=== PATIENT | male | born 1980 | race Hispanic/Latino ===

== ENCOUNTER 2018-11-10 19:21 | Emergency (ER) | payer OTHER ==
[2018-11-10 19:31] VITALS: BP 122/75
--- NOTE | 2018-11-10 19:36 | Emergency Department Report ---
Blank Doc - Documentation Documentation: 37 y o male presents to Ed cc of left sided chestpain with left arm pain and nu mbness to his arm. He described pain as sharp and intermittent thats worsens with movment He denies trauma, fall or injury
[2018-11-10 19:56] LABS: Basophils % (Auto) 0.5 % (0.0-1.8); Eosinophils # (Auto) 0.2 K/mm3 (0.0-0.4); Eosinophils % (Auto) 3.1 % (0.0-4.3); Lymphocytes # (Auto) 2.1 K/mm3 (1.2-5.4); Lymphocytes % (Auto) 30.4 % (13.4-35.0); Mean Corpuscular HGB Conc 36 % (32-34); Mean Corpuscular Volume 92 fl (84-94); Monocytes # (Auto) 0.3 K/mm3 (0.0-0.8); Monocytes % (Auto) 4.7 % (0.0-7.3); Platelet Count 202 K/mm3 (140-440); Red Blood Count 5.04 M/mm3 (3.65-5.03); Red Cell Distribution Width 12.8 % (13.2-15.2)
[2018-11-10 20:11] LABS: BUN/Creatinine Ratio 12; Blood Urea Nitrogen 13 mg/dL (9-20); Calcium 8.9 mg/dL (8.4-10.2); Hemolysis Index 14
[2018-11-10 20:12] LABS: Hematocrit 46.4 % (35.5-45.6); Hemoglobin 16.7 gm/dl (11.8-15.2)
--- NOTE | 2018-11-10 20:47 | XRay Report ---
PROCEDURE: XR CHEST ROUTINE 2V TECHNIQUE: PA and lateral chest radiographs were obtained. HISTORY: Chest Pain COMPARISONS: None. FINDINGS: Heart: Normal. Mediastinum/Vessels: Normal. Lungs/Pleural space: Normal. Bony thorax: No acute osseous abnormality. IMPRESSION: No acute cardiopulmonary process seen.. This document is electronically signed by Heide Johnson MD., November 10 2018 08:45:58 PM ET
[2018-11-10] MEDS ORDERED: ASPIRIN PO ONE (22:55)
--- NOTE | 2018-11-10 22:59 | Emergency Department Report ---
HPI - General Chief Complaint: Chest Pain Time Seen by Provider: 11/10/18 19:28 - HPI HPI: Room 23 The patient is a 37-year-old male presenting with a chief complaint of chest pain. The patient states this evening at approximately 18:30 he developed num bness in his left upper extremity and then tightness in his left chest. Patient states he became diaphoretic and nauseous but denies vomiting or shortness of breath. Patient denies pleurisy. Patient currently uses chest tightness a score of 3-4/10. Patient states he's never had a stress test or cardiac catheterization Location: [See above] Duration: [See above] Quality: Tightness Severity: [See above] Modifying factors: [see above] Context: [see above] Mode of transportation: Unknown ED Past Medical Hx - Past Medical History Previous Medical History?: Yes - Surgical History Past Surgical History?: Yes Additional Surgical History: Hernia Surgery x 2 - Family History Family history: no significant - Social History Smoking Status: Current Every Day Smoker (1.5 packs per day) Substance Use Type: None (denies illicit drug use), Alcohol (nightly after work) ED Review of Systems ROS: Stated complaint: LEFT ARM NUMB/CHEST PAIN Other details as noted in HPI Constitutional: diaphoresis Eyes: denies: eye pain ENT: denies: throat pain Respiratory: denies: shortness of breath Cardiovascular: chest pain Endocrine: no symptoms reported Gastrointestinal: nausea. denies: vomiting Genitourinary: denies: dysuria Musculoskeletal: denies: back pain Neurological: paresthesias Physical Exam - Physical Exam Vital Signs: Vital Signs 11/10/18 19:28 Temperature 98 F Pulse Rate 88 Respiratory 18 Rate Blood Pressure 122/75 O2 Sat by Pulse 97 Oximetry Physical Exam: GENERAL: The patient is well-developed well-nourished male lying on stretcher not appearing to be in acute distress. [] HEENT: Normocephalic. Atraumatic. Extraocular motions are intact. Patient has moist mucous membranes. NECK: Supple. Trachea midline CHEST/LUNGS: Clear to auscultation. There is no respiratory distress noted. HEART/CARDIOVASCULAR: Regular. There is no tachycardia. There is no gallop rub or murmur. ABDOMEN: Abdomen is soft, nontender. Patient has normal bowel sounds. There is no abdominal distention. SKIN: There is no rash. There is no edema. There is no diaphoresis. NEURO: The patient is awake, alert, and oriented. The patient is cooperative. The patient has normal speech and gait. MUSCULOSKELETAL: There is no evidence of acute injury. ED Course Vital Signs 11/10/18 19:28 Temperature 98 F Pulse Rate 88 Respiratory 18 Rate Blood Pressure 122/75 O2 Sat by Pulse 97 Oximetry ED Medical Decision Making - Lab Data Result diagrams: 11/10/18 19:42 11/10/18 19:42 Laboratory Tests 11/10/18 11/10/18 19:42 19:42 WBC 6.9 RBC 5.04 H Hgb 16.7 H Hct 46.4 H MCV 92 MCH 33 H MCHC 36 H RDW 12.8 L Plt Count 202 Lymph % (Auto) 30.4 Fergus % (Auto) 4.7 Eos % (Auto) 3.1 Baso % (Auto) 0.5 Lymph # 2.1 Fergus # 0.3 Eos # 0.2 Baso # 0.0 Seg Neutrophils % 61.3 Seg Neutrophils # 4.3 Sodium 140 Potassium 4.1 Chloride 101.1 Carbon Dioxide 27 Anion Gap 16 BUN 13 Creatinine 1.1 Estimated GFR > 60 BUN/Creatinine Ratio 12 Glucose 92 Calcium 8.9 Troponin T < 0.010 - EKG Data -: EKG Interpreted by Me EKG shows normal: sinus rhythm Rate: normal - EKG Data When compared to previous EKG there are: previous EKG unavailable Interpretation: other (no ischemic changes seen) - Radiology Data Radiology results: report reviewed (chest x-ray), image reviewed (chest x-ray) interpreted by me: Chest x-ray-no focal infiltrates, no pneumothorax [facility] [address] [place] [address] XRay Report Signed Patient: DEYANIRA DANIELSON MR#: [id number] : 1980 Acct:[id number] Age/Sex: 37 / M ADM Date: 11/10/18 Loc: ED Attending Dr: Ordering Physician: CORAL MARQUEZ Date of Service: 11/10/18 Procedure(s): XR chest routine 2V Accession Number(s): [id number] cc: CORAL MARQUEZ Fluoro Time In Minutes: PROCEDURE: XR CHEST ROUTINE 2V TECHNIQUE: PA and lateral chest radiographs were obtained. HISTORY: Chest Pain COMPARISONS: None. FINDINGS: Heart: Normal. Mediastinum/Vessels: Normal. Lungs/Pleural space: Normal. Bony thorax: No acute osseous abnormality. IMPRESSION: No acute cardiopulmonary process seen.. This document is electronically signed by Heide Johnson MD., November 10 2018 08:45:58 PM ET Transcribed By: [facility] Dictated By: HEIDE JOHNSON MD Electronically Authenticated By: HEIDE JOHNSON MD Signed Date/Time: 11/10/182046 DD/ 55 TD/TT: 11/10/181955 - Medical Decision Making I discussed with the patient at length my concern for his chest pain given his risk factors and that he needs to be admitted to the hospital for further observation/rule out LA. Patient verbalized understanding states he does not wish to stay in the hospital. Patient verbalizes understanding of increased morbidity and/or mortality should he leave the hospital AGAINST MEDICAL ADVICE. Patient advised to return to the hospital if he changes his mind. Patient advised to follow-up with a physician even if he does not come back to the emergency department for further evaluation. Patient verbalizes understanding - Differential Diagnosis ACS, pericarditis, GERD Critical care attestation.: If time is entered above; I have spent that time in minutes in the direct care of this critically ill patient, excluding procedure time. ED Disposition Clinical Impression: Chest pain Disposition: DC-07 LEFT AGAINST MED ADVICE Is pt being admited?: No Does the pt Need Aspirin: Yes Condition: Undetermined Instructions: Chest Pain (ED) Referrals: UMA DUQUE MD [Primary Care Provider] - 3-5 Days Time of Disposition: 23:01 (patient leaving AMA)
== END 2018-11-10 23:06 | disposition left against medical advice (07) ==
LOC: ED 19:21
DX: R07.89 Other chest pain (principal); F17.200 Nicotine dependence, unspecified, uncomplicated
CPT/HCPCS: 36415; 71046; 80048; 84484; 85025; 93005; 93010; 99283

== ENCOUNTER 2020-07-23 00:07 | Emergency (ER) | payer OTHER ==
[2020-07-23 00:22] VITALS: BP 118/84
--- NOTE | 2020-07-23 00:32 | Event Note ---
ED Screening Note Date of service: 07/23/20 Time: 00:27 ED Screening Note: 39-year-old man presents to the emergency room complaining of chest pain just 30 minutes prior to arrival. Patient states that the pain is on the left side and radiates to the left shoulder. Patient reports no past medical history that he takes medications for. This initial assessment/diagnostic orders/clinical plan/treatment(s) is/are subject to change based on patients health status, clinical progression and re- assessment by fellow clinical providers in the ED. Further treatment and workup at subsequent clinical providers discretion. Patient/guardian urged not to elope from the ED as their condition may be serious if not clinically assessed and managed. Initial orders include:
[2020-07-23] MEDS ORDERED: ASPIRIN 81 MG TAB CHEW PO ONE (00:53)
[2020-07-23 00:57] LABS: Basophils % (Auto) 0.5 % (0.0-1.8); Eosinophils # (Auto) 0.3 K/mm3 (0.0-0.4); Eosinophils % (Auto) 4.7 % (0.0-4.3); Lymphocytes # (Auto) 2.8 K/mm3 (1.2-5.4); Lymphocytes % (Auto) 38.7 % (13.4-35.0); Mean Corpuscular HGB Conc 36 % (32-34); Mean Corpuscular Volume 96 fl (84-94); Monocytes # (Auto) 0.5 K/mm3 (0.0-0.8); Monocytes % (Auto) 7.5 % (0.0-7.3); Platelet Count 231 K/mm3 (140-440); Red Blood Count 5.02 M/mm3 (3.65-5.03); Red Cell Distribution Width 12.4 % (13.2-15.2)
--- NOTE | 2020-07-23 00:57 | Emergency Department Report ---
ED Chest Pain HPI - General Chief Complaint: Chest Pain Stated Complaint: CHEST PAIN/LEFT SIDE NUMBNESS Time Seen by Provider: 07/23/20 00:27 Source: patient Mode of arrival: Ambulatory Limitations: No Limitations - History of Present Illness Initial Comments: Patient is 39 years old male with no significant past medical history. Patient presented to the ER complaining of left sided chest pain. Patient stated that pain started all of a sudden when he moved his left upper extremity. Patient describes his pain as sharp improved with remaining still. Patient stated that he had similar pain before and he was told that his nerve is acting up. Patient denied any shortness of breath, fever or chills. MD Complaint: chest pain -: Sudden, This evening Onset: during rest Pain Location: left chest Pain Radiation: LUE Severity: moderate Severity scale (0 -10): 4 Quality: sharp Consistency: intermittent Improves With: remaining still Worsens With: movement - Related Data Allergies Allergy/AdvReac Type Severity Reaction Status Date / Time No Known Allergies Allergy Unverified 11/10/18 19:24 Heart Score - HEART Score History: Slightly suspicious EKG: Normal Age: < 45 Risk factors: No known risk factors Troponin: < normal limit HEART Score: 0 - Critical Actions Critical Actions: 0-3 pts:0.9-1.7%risk of adverse cardiac event.Candidate for discharge ED Review of Systems ROS: Stated complaint: CHEST PAIN/LEFT SIDE NUMBNESS Other details as noted in HPI Comment: All other systems reviewed and negative Constitutional: denies: chills, fever Respiratory: denies: cough, shortness of breath, SOB with exertion Cardiovascular: chest pain. denies: palpitations, dyspnea on exertion Gastrointestinal: denies: abdominal pain, nausea, vomiting Musculoskeletal: denies: back pain Neurological: denies: headache, weakness ED Past Medical Hx - Past Medical History Additional medical history: Hernia surgery x 2 - Surgical History Additional Surgical History: Hernia Surgery x 2, nerve problem in L shoulder - Social History Smoking Status: Current Every Day Smoker Substance Use Type: Alcohol ED Physical Exam - General Limitations: No Limitations General appearance: alert, in no apparent distress - Head Head exam: Present: atraumatic, normocephalic, normal inspection - Eye Eye exam: Present: normal appearance, PERRL - ENT ENT exam: Present: normal exam, normal orophraynx, mucous membranes moist - Neck Neck exam: Present: normal inspection. Absent: tenderness - Respiratory Respiratory exam: Present: normal lung sounds bilaterally, chest wall tenderness. Absent: respiratory distress, wheezes, rales - Cardiovascular Cardiovascular Exam: Present: regular rate, normal rhythm, normal heart sounds - GI/Abdominal GI/Abdominal exam: Present: soft, normal bowel sounds. Absent: distended, tenderness, guarding, rebound, rigid, organomegaly, mass, bruit, pulsatile mass, hernia - Extremities Exam Extremities exam: Present: normal inspection, full ROM, normal capillary refill. Absent: tenderness - Back Exam Back exam: Present: normal inspection, full ROM. Absent: CVA tenderness (R), CVA tenderness (L) - Neurological Exam Neurological exam: Present: alert, oriented X3, CN II-XII intact - Psychiatric Psychiatric exam: Present: normal mood - Skin Skin exam: Present: warm, intact, normal color ED Course Vital Signs 07/23/20 00:21 Temperature 98.1 F Pulse Rate 87 Respiratory 18 Rate Blood Pressure 118/84 O2 Sat by Pulse 96 Oximetry ED Medical Decision Making - Lab Data Result diagrams: 07/23/20 00:30 07/23/20 00:30 - EKG Data -: EKG Interpreted by [place] EKG shows normal: sinus rhythm Rate: normal - EKG Data Interpretation: no acute changes - Radiology Data Radiology results: report reviewed - Medical Decision Making Patient is 39 years old male with no significant past medical history. Patient presented to the ER complaining of left sided chest pain. Patient stated that pain started all of a sudden when he moved his left upper extremity. Patient describes his pain as sharp improved with remaining still. Patient stated that he had similar pain before and he was told that his nerve is acting up. Patient denied any shortness of breath, fever or chills. EKG is unremarkable. Labs reviewed and is unremarkable including a negative troponin. Chest x-ray is negative for acute finding. Patient pain is atypical and reproducible. I believe patient chest is most likely due to costochondritis however patient strongly advised to follow-up with his primary care physician for outpatient cardiac work-up and advised to return to the ER if he develop any new symptoms. Critical care attestation.: If time is entered above; I have spent that time in minutes in the direct care of this critically ill patient, excluding procedure time. ED Disposition Clinical Impression: Atypical chest pain, Costochondritis, acute Disposition: DC-01 TO HOME OR SELFCARE Is pt being admited?: No Condition: Stable Instructions: Chest Pain (ED), Costochondritis, [id number], Nonspecific Chest Pain, Adult Referrals: PRIMARY CARE,MD [Primary Care Provider] - 3-5 Days
[2020-07-23 00:59] LABS: Hematocrit 48.1 % (35.5-45.6); Hemoglobin 17.1 gm/dl (11.8-15.2)
--- NOTE | 2020-07-23 01:03 | XRay Report ---
CHEST 1 VIEW 07/22/2020 11:52 PM INDICATION / CLINICAL INFORMATION: Chest Pain. COMPARISON: 11/10/2018 FINDINGS: SUPPORT DEVICES: None. HEART / MEDIASTINUM: No significant abnormality. LUNGS / PLEURA: No significant pulmonary or pleural abnormality. No pneumothorax. ADDITIONAL FINDINGS: No significant additional findings. IMPRESSION: 1. No acute findings. Signer Name: Awais Diehl MD Signed: 07/23/2020 12:59 AM Workstation Name: [id number]
[2020-07-23 01:07] LABS: INR 0.89 (0.87-1.13); Partial Thromboplastin Time 28.2 Sec. (24.2-36.6)
[2020-07-23 01:09] LABS: Alanine Aminotransferase 24 units/L (7-56); Albumin 4.8 g/dL (3.9-5); BUN/Creatinine Ratio 10; Blood Urea Nitrogen 9 mg/dL (9-20); Hemolysis Index 6
== END 2020-07-23 04:16 | disposition home or self-care (01) ==
LOC: ED 00:07
DX: M94.0 Chondrocostal junction syndrome [Tietze] (principal); R07.89 Other chest pain; F17.200 Nicotine dependence, unspecified, uncomplicated; Z98.890 Other specified postprocedural states
CPT/HCPCS: 36415; 71045; 80053; 83690; 84484; 85025; 85610; 85730; 93005